=== PATIENT | female | born 1990 | race Caucasian/White ===

== ENCOUNTER 2017-05-05 03:45 | Emergency (ER) | payer MEDICAID ==
[~2017-05-05] VITALS: Ht 162.6 cm; Wt 83.2 kg
[2017-05-05 03:47] VITALS: Ht 162.6 cm; Wt 83.2 kg
[2017-05-05] MEDS ORDERED: NPH10OT LEFT EAR (04:02)
--- NOTE | 2017-05-05 04:24 | ERD ---
ER Documentation Chief Complaint Chief Complaint pt verbalized: i think a carcamo is in my L ear HPI 26-year-old female presents here in the Er for complaints of left ear foreign body, cockroach insect went inside the left ear. Patient complains of pain in affected area, sharp pain, 6/10 scale, not better or worse with anything. Patient did not take any medications to help with symptoms. Patient denies any ear discharge. ROS All systems reviewed and are negative except as per history of present illness. Medications Home Meds Active Scripts Neomycin/Polymyxin/Hydrocort* (Cortisporin* Otic) 10 Ml Susp, 4 DROP LEFT EAR QID for 7 Days, EA Prov:SARA GOMEZ NP 05/05/17 Allergies Allergies: Coded Allergies: No Known Allergies (Verified Allergy, Mild, 05/05/17) PMhx/Soc Medical and Surgical Hx: pt denies Medical Hx, pt denies Surgical Hx History of Surgery: No Anesthesia Reaction: No Hx Neurological Disorder: No Hx Respiratory Disorders: No Hx Cardiac Disorders: No Hx Psychiatric Problems: No Hx Miscellaneous Medical Probl: No Hx Alcohol Use: No Hx Substance Use: No Hx Tobacco Use: Yes Smoking Status: Current every day smoker FmHx Family History: No coronary disease, No diabetes, No other Physical Exam Vitals Vital Signs Date Time Temp Pulse Resp B/P Pulse Ox O2 Delivery O2 Flow Rate FiO2 05/05/17 03:47 97.6 87 20 130/86 99 Physical Exam GENERAL: The patient is well developed and appropriate for usual state of health, in no apparent distress. HEENT: Atraumatic. Ears: Normal tympanic membrane, no erythema or bulging. No ear canal swelling. No ear discharge. The foreign body in the left ear. Patient has an insect in the left ear. Nose: normal nasal turbinates, no erythema or swelling. Normal nasal discharge. Throat: oropharynx clear. No tonsillar swelling or tonsillar exudates. No lymphadenopathy. CHEST: Clear to auscultation bilaterally. There are no rales, wheezes or rhonchi. HEART: Regular rate and rhythm. No murmurs, clicks, rubs or gallops. No S3 or S4. ABDOMEN: Soft, nontender and nondistended. Good bowel sounds. No rebound or guarding. No gross peritonitis. No gross organomegaly or masses. No Webb sign or McBurney point tenderness. BACK: No midline or flank tenderness. EXTREMITIES: Equal pulses bilaterally. There is no peripheral clubbing, cyanosis or edema. No focal swelling or erythema. Full range of motion. Grossly neurovascularly intact. NEURO: Alert and oriented. Cranial nerves 2-12 intact. Motor strength in all 4 extremities with 5/5 strength. Sensation grossly intact. Normal speech and gait. SKIN: There is no apparent rash or petechia. The skin is warm and dry. HEMATOLOGIC AND LYMPHATIC: There is no evidence of excessive bruising or lymphedema. No gross cervical, axillary, or inguinal lymphadenopathy. Procedures/MDM Procedure note: After patient verbal consent, the left ear, but it was removed without any difficulty using alligator forceps. No other foreign body noted in the left ear. The ear was lavaged with hydrogen peroxide and water combination. Patient tolerated procedure well. Medical decision making: Patient has left ear foreign body, it was removed without any difficulty. No TM perforation. No symptoms of any other foreign body in the ear. No other symptoms of infection at this time. Patient was given Corticosporin to prevent infection of affected area, is advised to follow- up with primary care doctor in 2-3 days for reevaluation of symptoms. Patient was advised to return to emergency department for any worsening symptoms. Disposition: Home. Stable Departure Diagnosis: Primary Impression: Ear foreign body Encounter type: initial encounter Laterality: left Qualified Code: T16.2XXA - Foreign body of left ear, initial encounter Condition: Stable Patient Instructions: Foreign Body, Ear Canal (Removed) SARA GOMEZ NP May 05, 2017 04:16
== END 2017-05-05 04:24 | disposition home or self-care (01) ==
LOC: FTE 03:45
DX: T16.2XXA Foreign body in left ear, initial encounter (principal); F17.210 Nicotine dependence, cigarettes, uncomplicated; X58.XXXA Exposure to other specified factors, initial encounter; Y92.9 Unspecified place or not applicable